=== PATIENT | male | born 1970 | race Two or more races ===

== ENCOUNTER 2020-12-28 12:55 | Inpatient (IN) | payer SELFPAY ==
[~2020-12-28] VITALS: Ht 165.1 cm; Wt 127.0 kg
[2020-12-28] MEDS ORDERED: [UNRECOGNIZED DRUG - CODE] PO (13:17)
[2020-12-28] MEDS ORDERED: TOPR25TA PO (13:17)
[2020-12-28] MEDS ORDERED: LISI2.5T9 PO (13:17)
[2020-12-28 13:51] LABS: BASO % 0.2 % (0.0-1.0); HEMATOCRIT 49.7 % (42.0-52.0); HEMOGLOBIN 15.9 g/dl (13.5-17.5); LYMPH # 0.5 10^3/uL (1.5-5.0); LYMPH % 8.1 % (24.0-44.0); MEAN CORPUSCULAR HEMOGLOBIN 29.3 pg (27.0-33.0); MEAN CORPUSCULAR VOLUME 91.7 fl (80.0-96.0); MONO # 0.8 10^3/uL (0.0-0.8); MONO % 12.1 % (2.0-8.0); NEUTROPHILS # 5.1 10^3/uL (1.5-8.5); NEUTROPHILS % 79.1 % (36.0-66.0); PLATELET COUNT, AUTOMATED 158 10^3/uL (150-450); RED BLOOD COUNT 5.42 10^6/uL (4.30-6.10); WHITE BLOOD COUNT 6.4 10^3/uL (4.0-10.0)
[2020-12-28 14:30] LABS: ALBUMIN 3.6 GM/DL (3.2-5.2); BILIRUBIN,DIRECT 0.2 MG/DL (0.0-0.2); BILIRUBIN,TOTAL 0.6 MG/DL (0.2-1.0); CALCIUM LEVEL 9.3 MG/DL (8.5-10.1); CREATININE FOR GFR 1.66 MG/DL (0.70-1.30); FREE T4 1.04 NG/DL (0.76-1.46); GLOMERULAR FILTRATION RATE 46.5 (>56); POTASSIUM SERUM 3.9 MEQ/L (3.5-5.1); THYROID STIMULATING HORMONE 0.323 uIU/ML (0.358-3.740); TOTAL PROTEIN 7.8 GM/DL (6.4-8.2)
[2020-12-28] MEDS ORDERED: ACETAMINOPHEN 325 MG TAB PO ONE (14:30)
[2020-12-28] MEDS ORDERED: NS 500 ML IV ONE ×4 (14:35→17:25)
[2020-12-28] MEDS ORDERED: ISOVUE-370 76% 100ML VIAL As Ordered ONE (14:43)
[2020-12-28 15:27] LABS: RSV AMPLIFICATION NEGATIVE (NEGATIVE)
[2020-12-28] MEDS ORDERED: MOM 30ML SUSPENSION UDC PO PRN (17:15)
[2020-12-28] MEDS ORDERED: MAALOX 30 ML SUSP *UDC PO PRN (17:15)
[2020-12-28] MEDS ORDERED: ACETAMINOPHEN TAB 650MG DOSE (2X325MG) PO PRN (17:15)
[2020-12-28] MEDS ORDERED: AMLO1TAB24 PO (18:32)
[2020-12-28] MEDS ORDERED: LISI40TA4 PO (18:33)
[2020-12-28] MEDS ORDERED: TRIA37.53 PO (18:34)
[2020-12-28] MEDS ORDERED: METO1TAB33 PO (18:34)
[2020-12-28 18:46] LABS: CK-MB VALUE MASS 2.6 NG/ML (<3.6); MB/CK RELATIVE INDEX 0.55 (< OR =4)
[2020-12-28 19:07] VITALS: BP 120/73
[2020-12-28] MEDS: dexameTHASONE 4 MG/ML 1ML VIAL (J1100 PER 1MG) IV SCH (19:15)
[2020-12-28] MEDS: PIPERACILLIN/TAZOBACTAM SOD 4.5 GM in D5W MINI-BAG PLUS 50 ML IV SCH (19:15)
[2020-12-28 19:30] VITALS: BP_SYST 127; BP_SYST 128; BP_SYST 133; BP_DIAS 74; BP_DIAS 84
[2020-12-28 19:45] LABS: C REACTIVE PROTEIN QUANTITATIV 0.71 MG/DL (0.00-0.30)
[2020-12-28] MEDS ORDERED: LR 1,000 ML IV SCH (19:45)
[2020-12-28 20:00] VITALS: BP 119/72
[2020-12-28 20:12] LABS: ERYTHROCYTE SEDIMENTATION RATE 3 mm/hr (0-20)
[2020-12-28] MEDS: NS 1,000 ML IV SCH (20:18)
[2020-12-28] MEDS ORDERED: REMDESIVIR 200 MG in NS 250 ML IV ONE (21:00)
[2020-12-28] MEDS ORDERED: SODIUM CHLORIDE 0.9% INJ 10 ML SYR IV ONE (21:00)
[2020-12-29] VITALS (7 sets, daily range): BP systolic 104–130; BP diastolic 64–81
[2020-12-29] MEDS: PIPERACILLIN/TAZOBACTAM SOD 4.5 GM in D5W MINI-BAG PLUS 50 ML IV SCH ×3 (01:04→13:20)
[2020-12-29] MEDS: NS 1,000 ML IV SCH ×3 (03:16→15:10)
[2020-12-29 05:43] LABS: HEMATOCRIT 44.9 % (42.0-52.0); HEMOGLOBIN 14.8 g/dl (13.5-17.5); LYMPH # 0.3 10^3/uL (1.5-5.0); LYMPH % 8.3 % (24.0-44.0); MEAN CORPUSCULAR HEMOGLOBIN 29.7 pg (27.0-33.0); MONO # 0.3 10^3/uL (0.0-0.8); MONO % 9.7 % (2.0-8.0); NEUTROPHILS # 2.8 10^3/uL (1.5-8.5); NEUTROPHILS % 81.7 % (36.0-66.0); PLATELET COUNT, AUTOMATED 152 10^3/uL (150-450); RED BLOOD COUNT 4.99 10^6/uL (4.30-6.10); WHITE BLOOD COUNT 3.4 10^3/uL (4.0-10.0)
[2020-12-29 05:57] LABS: INR 1.1; PROTHROMBIN TIME 14.7 SECONDS (12.7-14.5)
[2020-12-29 06:01] LABS: D-DIMER QUANT 937.41 ng/ml (<500)
[2020-12-29 06:10] LABS: ALBUMIN 2.9 GM/DL (3.2-5.2); BILIRUBIN,TOTAL 0.3 MG/DL (0.2-1.0); CALCIUM LEVEL 8.3 MG/DL (8.5-10.1); CREATININE FOR GFR 1.35 MG/DL (0.70-1.30); GLOMERULAR FILTRATION RATE 59.1 (>56); POTASSIUM SERUM 4.4 MEQ/L (3.5-5.1); TOTAL PROTEIN 6.6 GM/DL (6.4-8.2)
[2020-12-29 06:14] LABS: C REACTIVE PROTEIN QUANTITATIV 1.21 MG/DL (0.00-0.30)
[2020-12-29] MEDS ORDERED: ENOXAPARIN 40MG/0.4ML SYRINGE (J1650 PER 10MG) SC SCH (09:00)
[2020-12-29] MEDS: dexameTHASONE 4 MG/ML 1ML VIAL (J1100 PER 1MG) IV SCH (09:02)
[2020-12-29] MEDS ORDERED: PRED10TA2 PO (12:37)
[2020-12-29] MEDS ORDERED: ACET1TAB55 PO (12:37)
[2020-12-29] MEDS ORDERED: REMDESIVIR 100 MG in NS 250 ML IV SCH (21:00)
[2020-12-29] MEDS ORDERED: SODIUM CHLORIDE 0.9% INJ 10 ML SYR IV SCH (21:00)
== END 2020-12-29 15:31 | disposition home or self-care (01) | DRG 137 ==
LOC: M ED 12:55 → EDBD 12:55 → M ED INP 17:12 → M ICU 18:50
PROVIDERS: ADMIT Family Medicine; ATTEND Family Medicine
PROC: XW033E5 Introduction of Remdesivir Anti-infective into Peripheral Vein, Percutaneous Approach, New Technology Group 5 (ICD-10-PCS; principal; 2020-12-28)
PROC: 3E0333Z Introduction of Anti-inflammatory into Peripheral Vein, Percutaneous Approach (ICD-10-PCS; 2020-12-28)
DX: U07.1 COVID-19 (principal); J12.82 Pneumonia due to coronavirus disease 2019; N17.9 Acute kidney failure, unspecified; I95.2 Hypotension due to drugs; Z79.899 Other long term (current) drug therapy

== ENCOUNTER 2021-01-07 11:39 | Inpatient (IN) | payer BC, SELFPAY ==
[~2021-01-07] VITALS: Ht 180.3 cm; Wt 122.9 kg
[2021-01-07] MEDS: ENOXAPARIN 80MG/0.8ML SYRINGE (J1650 PER 10MG) SC SCH (00:45)
[2021-01-07] MEDS: BARICITINIB 2MG TABLET (OLUMIANT) FOR EUA PO SCH (09:00)
[~2021-01-07 11:39] MED LIST: ACET1TAB55 PO; AMLO1TAB24 PO; LISI2.5T9 PO; LISI40TA4 PO; METO1TAB33 PO; PRED10TA2 PO; TOPR25TA PO; TRIA37.53 PO; [UNRECOGNIZED DRUG - CODE] PO
[2021-01-07 13:06] LABS: ABG BASE EXCESS 1.1 (-2.0-2.0); ABG HCO3 24.8 MEQ/L (22.0-26.0); ABG O2 SATURATION 88.3 % (95.0-99.0); ABG PARTIAL PRESSURE CO2 36.6 mmHg (35.0-45.0); ABG PARTIAL PRESSURE O2 52.6 mmHg (75.0-100.0); ABG STANDARD HCO3 25.2 MEQ/L (22.0-26.0); ABG TOTAL CO2 25.9 MEQ/L (22.0-29.0); ABG pH (ARTERIAL) 7.448 UNITS (7.350-7.450)
[2021-01-07 13:35] LABS: BASO % 0.2 % (0.0-1.0); EOS % 0.1 % (0.0-3.0); HEMATOCRIT 44.6 % (42.0-52.0); HEMOGLOBIN 14.4 g/dl (13.5-17.5); LYMPH # 0.4 10^3/uL (1.5-5.0); LYMPH % 2.7 % (24.0-44.0); MEAN CORPUSCULAR HEMOGLOBIN 29.3 pg (27.0-33.0); MEAN CORPUSCULAR HGB CONC 32.3 g/dl (32.0-36.5); MEAN CORPUSCULAR VOLUME 90.8 fl (80.0-96.0); MONO # 0.7 10^3/uL (0.0-0.8); NEUTROPHILS # 14.9 10^3/uL (1.5-8.5); NEUTROPHILS % 91.9 % (36.0-66.0); PLATELET COUNT, AUTOMATED 235 10^3/uL (150-450); RED BLOOD COUNT 4.91 10^6/uL (4.30-6.10); WHITE BLOOD COUNT 16.2 10^3/uL (4.0-10.0)
[2021-01-07 13:45] LABS: INR 1.14
[2021-01-07 13:46] LABS: FIBRINOGEN 781 MG/DL (268-480); PARTIAL THROMBOPLASTIN TIME 23.7 SECONDS (25.9-37.0)
[2021-01-07 14:08] LABS: D-DIMER QUANT > 4000.0 ng/ml (<500)
[2021-01-07 14:09] LABS: ALBUMIN 2.5 GM/DL (3.2-5.2); ALT/SGPT 138 U/L (12-78); BILIRUBIN,DIRECT 0.3 MG/DL (0.0-0.2); BILIRUBIN,TOTAL 0.6 MG/DL (0.2-1.0); BLOOD UREA NITROGEN 24 MG/DL (7-18); CALCIUM LEVEL 8.8 MG/DL (8.5-10.1); CARBON DIOXIDE LEVEL 29 MEQ/L (21-32); CHLORIDE LEVEL 104 MEQ/L (98-107); FERRITIN 1165 NG/ML (26-388); GLOMERULAR FILTRATION RATE > 60.0 (>56); GLUCOSE, FASTING 108 MG/DL (70-100); LDH LACTATE DEHYDROGENASE 447 U/L (87-241); MAGNESIUM LEVEL 2.4 MG/DL (1.8-2.4); NT-PRO BNP 65 PG/ML (<125); POTASSIUM SERUM 4.1 MEQ/L (3.5-5.1); SODIUM LEVEL 140 MEQ/L (136-145); THYROID STIMULATING HORMONE 0.291 uIU/ML (0.358-3.740); THYROXINE (T4) 9.7 UG/DL (4.5-12.0); TOTAL PROTEIN 7.2 GM/DL (6.4-8.2)
[2021-01-07] MEDS ORDERED: cefTRIAXone SOD 2 GM in D5W MINI-BAG PLUS 50 ML IV ONE (14:15)
[2021-01-07] MEDS ORDERED: dexameTHASONE 20MG/5ML VIAL (J1100 PER 1MG) IV ONE (14:15)
[2021-01-07] MEDS ORDERED: AZITHROMYCIN INJ 500 MG, VIAL MATE ADAPTER 1 EACH in NS 250 ML IV ONE (14:15)
[2021-01-07] MEDS ORDERED: ISOVUE-370 76% 100ML VIAL As Ordered ONE (14:26)
[2021-01-07] MEDS ORDERED: ALBUTEROL 90 MCG/ACT 8GM HFA INHALER INH PRN (15:55)
[2021-01-07] MEDS ORDERED: PRED10TA2 PO (16:48)
[2021-01-07] MEDS ORDERED: ACET1TAB55 PO (16:49)
[2021-01-07] MEDS ORDERED: HOME MED LIST COMPLETE! XX SCH (16:50)
[2021-01-07] MEDS ORDERED: NS 1,000 ML IV SCH (17:00)
[2021-01-07] MEDS ORDERED: SODIUM CHLORIDE 0.9% INJ 10 ML SYR IV ONE (20:00)
[2021-01-07] MEDS: REMDESIVIR 200 MG in NS 250 ML IV ONE ×2 (21:02→22:15)
[2021-01-07] MEDS: ACETAMINOPHEN TAB 650MG DOSE (2X325MG) PO PRN (23:34)
[2021-01-08 08:26] LABS: HEMATOCRIT 43.1 % (42.0-52.0); HEMOGLOBIN 14.1 g/dl (13.5-17.5); MEAN CORPUSCULAR HEMOGLOBIN 29.6 pg (27.0-33.0); MEAN CORPUSCULAR HGB CONC 32.7 g/dl (32.0-36.5); MEAN CORPUSCULAR VOLUME 90.4 fl (80.0-96.0); PLATELET COUNT, AUTOMATED 193 10^3/uL (150-450); RED BLOOD COUNT 4.77 10^6/uL (4.30-6.10); WHITE BLOOD COUNT 12.3 10^3/uL (4.0-10.0)
[2021-01-08] MEDS: dexameTHASONE 4 MG/ML 1ML VIAL (J1100 PER 1MG) IV SCH (08:33)
[2021-01-08] MEDS: ENOXAPARIN 80MG/0.8ML SYRINGE (J1650 PER 10MG) SC SCH ×2 (08:34→20:48)
[2021-01-08] MEDS: BARICITINIB 2MG TABLET (OLUMIANT) FOR EUA PO SCH (08:35)
[2021-01-08 08:51] LABS: ALBUMIN 2.1 GM/DL (3.2-5.2); ALT/SGPT 101 U/L (12-78); BILIRUBIN,TOTAL 0.5 MG/DL (0.2-1.0); BLOOD UREA NITROGEN 24 MG/DL (7-18); CALCIUM LEVEL 8.6 MG/DL (8.5-10.1); CARBON DIOXIDE LEVEL 26 MEQ/L (21-32); CHLORIDE LEVEL 109 MEQ/L (98-107); CREATININE FOR GFR 0.78 MG/DL (0.70-1.30); GLOMERULAR FILTRATION RATE > 60.0 (>56); GLUCOSE, FASTING 122 MG/DL (70-100); POTASSIUM SERUM 4.5 MEQ/L (3.5-5.1); SODIUM LEVEL 142 MEQ/L (136-145); TOTAL PROTEIN 7.2 GM/DL (6.4-8.2)
[2021-01-08] MEDS ORDERED: LevoFLOXacin IV 750 MG in IV 1 EA IV SCH (09:00)
[2021-01-08 10:29] LABS: ABG BASE EXCESS 1.3 (-2.0-2.0); ABG HCO3 25.1 MEQ/L (22.0-26.0); ABG O2 SATURATION 93.8 % (95.0-99.0); ABG PARTIAL PRESSURE CO2 37.2 mmHg (35.0-45.0); ABG PARTIAL PRESSURE O2 69.1 mmHg (75.0-100.0); ABG STANDARD HCO3 25.5 MEQ/L (22.0-26.0); ABG TOTAL CO2 26.2 MEQ/L (22.0-29.0); ABG pH (ARTERIAL) 7.447 UNITS (7.350-7.450)
[2021-01-08 16:15] VITALS: BP 135/58
[2021-01-08] MEDS: REMDESIVIR 100 MG in NS 250 ML IV SCH (17:57)
[2021-01-08 19:33] VITALS: BP 143/74
[2021-01-08] MEDS: SODIUM CHLORIDE 0.9% INJ 10 ML SYR IV SCH (19:33)
[2021-01-08 23:35] VITALS: BP 133/63
[2021-01-09 03:35] VITALS: BP 162/83
[2021-01-09] MEDS ORDERED: IPRATROPIUM 0.5MG/ALBUTEROL 2.5MG INH SOL UD 3ML (DUONEB) NEB PRN (04:25)
[2021-01-09 06:15] LABS: HEMATOCRIT 43.6 % (42.0-52.0); HEMOGLOBIN 14.2 g/dl (13.5-17.5); MEAN CORPUSCULAR HEMOGLOBIN 29.3 pg (27.0-33.0); MEAN CORPUSCULAR HGB CONC 32.6 g/dl (32.0-36.5); MEAN CORPUSCULAR VOLUME 90.1 fl (80.0-96.0); PLATELET COUNT, AUTOMATED 211 10^3/uL (150-450); RED BLOOD COUNT 4.84 10^6/uL (4.30-6.10); WHITE BLOOD COUNT 18.3 10^3/uL (4.0-10.0)
[2021-01-09 06:26] LABS: INR 1.26; PARTIAL THROMBOPLASTIN TIME 27.4 SECONDS (25.9-37.0); PROTHROMBIN TIME 16.3 SECONDS (12.7-14.5)
[2021-01-09 06:47] LABS: ALBUMIN 2.1 GM/DL (3.2-5.2); ALT/SGPT 97 U/L (12-78); BILIRUBIN,TOTAL 0.5 MG/DL (0.2-1.0); BLOOD UREA NITROGEN 24 MG/DL (7-18); CALCIUM LEVEL 8.5 MG/DL (8.5-10.1); CARBON DIOXIDE LEVEL 28 MEQ/L (21-32); CHLORIDE LEVEL 110 MEQ/L (98-107); CREATININE FOR GFR 0.85 MG/DL (0.70-1.30); FERRITIN 1116 NG/ML (26-388); GLOMERULAR FILTRATION RATE > 60.0 (>56); GLUCOSE, FASTING 106 MG/DL (70-100); LDH LACTATE DEHYDROGENASE 462 U/L (87-241); NT-PRO BNP 121 PG/ML (<125); POTASSIUM SERUM 4.5 MEQ/L (3.5-5.1); SODIUM LEVEL 144 MEQ/L (136-145); TOTAL PROTEIN 6.5 GM/DL (6.4-8.2)
[2021-01-09 08:00] VITALS: BP 146/65
[2021-01-09] MEDS ORDERED: FUROSEMIDE 20MG/2ML VIAL (J1940) IV ONE (08:00)
[2021-01-09] MEDS: dexameTHASONE 4 MG/ML 1ML VIAL (J1100 PER 1MG) IV SCH (08:49)
[2021-01-09] MEDS: ENOXAPARIN 80MG/0.8ML SYRINGE (J1650 PER 10MG) SC SCH ×2 (08:50→20:10)
[2021-01-09] MEDS: BARICITINIB 2MG TABLET (OLUMIANT) FOR EUA PO SCH (08:52)
[2021-01-09 08:56] VITALS: BP 146/65
[2021-01-09 12:00] VITALS: BP 121/66
[2021-01-09 16:15] VITALS: BP 128/62
[2021-01-09] MEDS: ACETAMINOPHEN TAB 650MG DOSE (2X325MG) PO PRN (16:18)
[2021-01-09] MEDS: REMDESIVIR 100 MG in NS 250 ML IV SCH (17:31)
[2021-01-09] MEDS: SODIUM CHLORIDE 0.9% INJ 10 ML SYR IV SCH (19:08)
[2021-01-09 20:00] VITALS: BP 138/75
[2021-01-10] VITALS: BP 136/71
[2021-01-10 04:00] VITALS: BP 140/68
[2021-01-10 04:43] LABS: HEMOGLOBIN 14.3 g/dl (13.5-17.5); MEAN CORPUSCULAR HEMOGLOBIN 29.7 pg (27.0-33.0); MEAN CORPUSCULAR HGB CONC 33.3 g/dl (32.0-36.5); MEAN CORPUSCULAR VOLUME 89.4 fl (80.0-96.0); PLATELET COUNT, AUTOMATED 190 10^3/uL (150-450); RED BLOOD COUNT 4.81 10^6/uL (4.30-6.10); WHITE BLOOD COUNT 13.8 10^3/uL (4.0-10.0)
[2021-01-10 05:06] LABS: ALBUMIN 2.1 GM/DL (3.2-5.2); ALT/SGPT 92 U/L (12-78); BILIRUBIN,TOTAL 0.7 MG/DL (0.2-1.0); BLOOD UREA NITROGEN 27 MG/DL (7-18); CALCIUM LEVEL 8.3 MG/DL (8.5-10.1); CARBON DIOXIDE LEVEL 28 MEQ/L (21-32); CHLORIDE LEVEL 106 MEQ/L (98-107); CREATININE FOR GFR 0.83 MG/DL (0.70-1.30); GLOMERULAR FILTRATION RATE > 60.0 (>56); GLUCOSE, FASTING 106 MG/DL (70-100); POTASSIUM SERUM 4.4 MEQ/L (3.5-5.1); SODIUM LEVEL 143 MEQ/L (136-145); TOTAL PROTEIN 6.6 GM/DL (6.4-8.2)
[2021-01-10 08:00] VITALS: BP 155/95
[2021-01-10] MEDS: BARICITINIB 2MG TABLET (OLUMIANT) FOR EUA PO SCH (08:27)
[2021-01-10] MEDS: dexameTHASONE 4 MG/ML 1ML VIAL (J1100 PER 1MG) IV SCH (08:27)
[2021-01-10] MEDS: ENOXAPARIN 80MG/0.8ML SYRINGE (J1650 PER 10MG) SC SCH ×2 (08:27→19:37)
[2021-01-10] MEDS: FUROSEMIDE 20MG/2ML VIAL (J1940) IV SCH (08:27)
[2021-01-10 09:02] LABS: ABG BASE EXCESS 3.1 (-2.0-2.0); ABG O2 SATURATION 89.2 % (95.0-99.0); ABG PARTIAL PRESSURE O2 55.9 mmHg (75.0-100.0); ABG TOTAL CO2 28.2 MEQ/L (22.0-29.0); ABG pH (ARTERIAL) 7.458 UNITS (7.350-7.450)
[2021-01-10 12:00] VITALS: BP 126/81
[2021-01-10 13:10] LABS: MYCOPLASMA PNEUMONIAE IgG 415 U/mL (0-99); MYCOPLASMA PNEUMONIAE IgM <770 U/mL (0-769)
[2021-01-10 16:00] VITALS: BP 121/69
[2021-01-10] MEDS: REMDESIVIR 100 MG in NS 250 ML IV SCH (18:01)
[2021-01-10] MEDS: SODIUM CHLORIDE 0.9% INJ 10 ML SYR IV SCH (19:37)
[2021-01-10 20:00] VITALS: BP 129/82
[2021-01-11] VITALS: BP 130/79
[2021-01-11 04:00] VITALS: BP 137/67
[2021-01-11 06:17] LABS: HEMATOCRIT 47.7 % (42.0-52.0); HEMOGLOBIN 15.4 g/dl (13.5-17.5); MEAN CORPUSCULAR HEMOGLOBIN 29.7 pg (27.0-33.0); MEAN CORPUSCULAR HGB CONC 32.3 g/dl (32.0-36.5); MEAN CORPUSCULAR VOLUME 92.1 fl (80.0-96.0); PLATELET COUNT, AUTOMATED 168 10^3/uL (150-450); RED BLOOD COUNT 5.18 10^6/uL (4.30-6.10); WHITE BLOOD COUNT 10.9 10^3/uL (4.0-10.0)
[2021-01-11 06:28] LABS: INR 1.25; PARTIAL THROMBOPLASTIN TIME 27.9 SECONDS (25.9-37.0); PROTHROMBIN TIME 16.1 SECONDS (12.7-14.5)
[2021-01-11 06:42] LABS: ALBUMIN 2.2 GM/DL (3.2-5.2); ALT/SGPT 70 U/L (12-78); BILIRUBIN,TOTAL 0.6 MG/DL (0.2-1.0); BLOOD UREA NITROGEN 27 MG/DL (7-18); CALCIUM LEVEL 8.2 MG/DL (8.5-10.1); CARBON DIOXIDE LEVEL 31 MEQ/L (21-32); CHLORIDE LEVEL 105 MEQ/L (98-107); CREATININE FOR GFR 0.94 MG/DL (0.70-1.30); GLOMERULAR FILTRATION RATE > 60.0 (>56); GLUCOSE, FASTING 103 MG/DL (70-100); SODIUM LEVEL 139 MEQ/L (136-145); TOTAL PROTEIN 6.7 GM/DL (6.4-8.2)
[2021-01-11 06:44] LABS: FERRITIN 768 NG/ML (26-388); LDH LACTATE DEHYDROGENASE 368 U/L (87-241); NT-PRO BNP 84 PG/ML (<125)
[2021-01-11 08:00] VITALS: BP 133/89
[2021-01-11] MEDS: BARICITINIB 2MG TABLET (OLUMIANT) FOR EUA PO SCH (09:17)
[2021-01-11] MEDS: dexameTHASONE 4 MG/ML 1ML VIAL (J1100 PER 1MG) IV SCH (09:18)
[2021-01-11] MEDS: FUROSEMIDE 20MG/2ML VIAL (J1940) IV SCH (09:18)
[2021-01-11] MEDS: ENOXAPARIN 80MG/0.8ML SYRINGE (J1650 PER 10MG) SC SCH ×2 (09:19→20:46)
[2021-01-11 12:00] VITALS: BP 131/78
[2021-01-11 17:00] VITALS: BP 136/81
[2021-01-11] MEDS: REMDESIVIR 100 MG in NS 250 ML IV SCH (17:52)
[2021-01-11] MEDS: SODIUM CHLORIDE 0.9% INJ 10 ML SYR IV SCH (18:56)
[2021-01-11 22:20] VITALS: BP 127/81
[2021-01-12] VITALS: BP 120/72
[2021-01-12 04:00] VITALS: BP 122/68
[2021-01-12 06:34] LABS: HEMATOCRIT 44.8 % (42.0-52.0); HEMOGLOBIN 14.4 g/dl (13.5-17.5); MEAN CORPUSCULAR HEMOGLOBIN 28.8 pg (27.0-33.0); MEAN CORPUSCULAR HGB CONC 32.1 g/dl (32.0-36.5); MEAN CORPUSCULAR VOLUME 89.6 fl (80.0-96.0); PLATELET COUNT, AUTOMATED 185 10^3/uL (150-450); WHITE BLOOD COUNT 9.9 10^3/uL (4.0-10.0)
[2021-01-12 06:48] LABS: ALBUMIN 1.9 GM/DL (3.2-5.2); ALT/SGPT 55 U/L (12-78); BILIRUBIN,TOTAL 0.7 MG/DL (0.2-1.0); BLOOD UREA NITROGEN 22 MG/DL (7-18); CALCIUM LEVEL 8.7 MG/DL (8.5-10.1); CARBON DIOXIDE LEVEL 32 MEQ/L (21-32); CHLORIDE LEVEL 104 MEQ/L (98-107); CREATININE FOR GFR 0.91 MG/DL (0.70-1.30); GLOMERULAR FILTRATION RATE > 60.0 (>56); GLUCOSE, FASTING 100 MG/DL (70-100); POTASSIUM SERUM 4.7 MEQ/L (3.5-5.1); SODIUM LEVEL 140 MEQ/L (136-145); TOTAL PROTEIN 6.8 GM/DL (6.4-8.2)
[2021-01-12 08:00] VITALS: BP 116/80
[2021-01-12] MEDS: FUROSEMIDE 20MG/2ML VIAL (J1940) IV SCH (09:25)
[2021-01-12] MEDS: ENOXAPARIN 80MG/0.8ML SYRINGE (J1650 PER 10MG) SC SCH ×2 (09:25→20:22)
[2021-01-12] MEDS: dexameTHASONE 4 MG/ML 1ML VIAL (J1100 PER 1MG) IV SCH (09:25)
[2021-01-12] MEDS: BARICITINIB 2MG TABLET (OLUMIANT) FOR EUA PO SCH (09:26)
[2021-01-12 12:00] VITALS: BP 111/62
[2021-01-12 16:00] VITALS: BP 127/60
[2021-01-12 16:09] LABS: BODY FLUID CULTURE Not indicated. (.); LEGIONELLA ANTIGEN URINE Negative (Negative); ORGANISM ID Not indicated. (.); SPECIMEN SOURCE Urine (.); URINE STREP PNEUMONIAE ANTIGEN Negative (Negative)
[2021-01-12 20:00] VITALS: BP 123/66
[2021-01-13] VITALS: BP 126/78
[2021-01-13 04:00] VITALS: BP 122/78
[2021-01-13 06:36] LABS: HEMATOCRIT 43.4 % (42.0-52.0); HEMOGLOBIN 14.4 g/dl (13.5-17.5); MEAN CORPUSCULAR HEMOGLOBIN 29.3 pg (27.0-33.0); MEAN CORPUSCULAR HGB CONC 33.2 g/dl (32.0-36.5); MEAN CORPUSCULAR VOLUME 88.2 fl (80.0-96.0); PLATELET COUNT, AUTOMATED 193 10^3/uL (150-450); RED BLOOD COUNT 4.92 10^6/uL (4.30-6.10); WHITE BLOOD COUNT 8.8 10^3/uL (4.0-10.0)
[2021-01-13 06:48] LABS: INR 1.23; PROTHROMBIN TIME 15.9 SECONDS (12.7-14.5)
[2021-01-13 06:49] LABS: PARTIAL THROMBOPLASTIN TIME 29.9 SECONDS (25.9-37.0)
[2021-01-13 07:03] LABS: ALBUMIN 1.9 GM/DL (3.2-5.2); ALT/SGPT 49 U/L (12-78); BILIRUBIN,TOTAL 0.4 MG/DL (0.2-1.0); BLOOD UREA NITROGEN 24 MG/DL (7-18); CALCIUM LEVEL 8.4 MG/DL (8.5-10.1); CARBON DIOXIDE LEVEL 29 MEQ/L (21-32); CHLORIDE LEVEL 103 MEQ/L (98-107); CREATININE FOR GFR 0.86 MG/DL (0.70-1.30); FERRITIN 604 NG/ML (26-388); GLOMERULAR FILTRATION RATE > 60.0 (>56); GLUCOSE, FASTING 150 MG/DL (70-100); LDH LACTATE DEHYDROGENASE 197 U/L (87-241); NT-PRO BNP 35 PG/ML (<125); POTASSIUM SERUM 3.9 MEQ/L (3.5-5.1); SODIUM LEVEL 137 MEQ/L (136-145); TOTAL PROTEIN 6.5 GM/DL (6.4-8.2)
[2021-01-13 08:30] VITALS: BP 108/58
[2021-01-13] MEDS: FUROSEMIDE 20MG/2ML VIAL (J1940) IV SCH (09:21)
[2021-01-13] MEDS: BARICITINIB 2MG TABLET (OLUMIANT) FOR EUA PO SCH (09:21)
[2021-01-13] MEDS: dexameTHASONE 4 MG/ML 1ML VIAL (J1100 PER 1MG) IV SCH (09:21)
[2021-01-13] MEDS: ENOXAPARIN 80MG/0.8ML SYRINGE (J1650 PER 10MG) SC SCH ×2 (09:22→20:17)
[2021-01-13 12:00] VITALS: BP 99/61
[2021-01-13 20:00] VITALS: BP 116/73
[2021-01-14] VITALS: BP 115/72
[2021-01-14 04:00] VITALS: BP 113/63
[2021-01-14 08:00] VITALS: BP 124/87
[2021-01-14] MEDS: BARICITINIB 2MG TABLET (OLUMIANT) FOR EUA PO SCH (09:29)
[2021-01-14] MEDS: ENOXAPARIN 80MG/0.8ML SYRINGE (J1650 PER 10MG) SC SCH ×2 (09:29→20:22)
[2021-01-14] MEDS: dexameTHASONE 4 MG/ML 1ML VIAL (J1100 PER 1MG) IV SCH (09:29)
[2021-01-14 09:30] VITALS: BP 114/66
[2021-01-14 12:51] VITALS: BP 109/79
[2021-01-14 22:00] VITALS: BP 127/79
[2021-01-15 06:00] VITALS: BP 121/74
[2021-01-15 08:03] LABS: HEMATOCRIT 44.8 % (42.0-52.0); HEMOGLOBIN 14.6 g/dl (13.5-17.5); MEAN CORPUSCULAR HEMOGLOBIN 29.1 pg (27.0-33.0); MEAN CORPUSCULAR HGB CONC 32.6 g/dl (32.0-36.5); MEAN CORPUSCULAR VOLUME 89.2 fl (80.0-96.0); PLATELET COUNT, AUTOMATED 241 10^3/uL (150-450); RED BLOOD COUNT 5.02 10^6/uL (4.30-6.10); WHITE BLOOD COUNT 7.6 10^3/uL (4.0-10.0)
[2021-01-15 08:16] LABS: BLOOD UREA NITROGEN 22 MG/DL (7-18); CALCIUM LEVEL 8.9 MG/DL (8.5-10.1); CARBON DIOXIDE LEVEL 32 MEQ/L (21-32); CHLORIDE LEVEL 105 MEQ/L (98-107); CREATININE FOR GFR 0.92 MG/DL (0.70-1.30); GLOMERULAR FILTRATION RATE > 60.0 (>56); GLUCOSE, FASTING 149 MG/DL (70-100); MAGNESIUM LEVEL 2.5 MG/DL (1.8-2.4); SODIUM LEVEL 141 MEQ/L (136-145)
[2021-01-15] MEDS: BARICITINIB 2MG TABLET (OLUMIANT) FOR EUA PO SCH (08:27)
[2021-01-15] MEDS: dexameTHASONE 4 MG/ML 1ML VIAL (J1100 PER 1MG) IV SCH (08:54)
[2021-01-15] MEDS: ENOXAPARIN 80MG/0.8ML SYRINGE (J1650 PER 10MG) SC SCH (08:54)
[2021-01-15 14:00] VITALS: BP 123/74
[2021-01-15 20:00] VITALS: BP 131/84
[2021-01-16 04:00] VITALS: BP 137/86
[2021-01-16] MEDS: BARICITINIB 2MG TABLET (OLUMIANT) FOR EUA PO SCH (08:45)
[2021-01-16] MEDS: ENOXAPARIN 40MG/0.4ML SYRINGE (J1650 PER 10MG) SC SCH (08:46)
[2021-01-16] MEDS: dexameTHASONE 4 MG/ML 1ML VIAL (J1100 PER 1MG) IV SCH (08:46)
[2021-01-16 14:00] VITALS: BP 116/66
[2021-01-16 20:00] VITALS: BP 108/60
[2021-01-17 04:00] VITALS: BP 139/79
[2021-01-17 06:50] LABS: HEMATOCRIT 43.9 % (42.0-52.0); HEMOGLOBIN 14.4 g/dl (13.5-17.5); MEAN CORPUSCULAR HEMOGLOBIN 29.1 pg (27.0-33.0); MEAN CORPUSCULAR HGB CONC 32.8 g/dl (32.0-36.5); MEAN CORPUSCULAR VOLUME 88.9 fl (80.0-96.0); PLATELET COUNT, AUTOMATED 250 10^3/uL (150-450); RED BLOOD COUNT 4.94 10^6/uL (4.30-6.10); WHITE BLOOD COUNT 8.1 10^3/uL (4.0-10.0)
[2021-01-17 07:13] LABS: BLOOD UREA NITROGEN 22 MG/DL (7-18); CALCIUM LEVEL 8.6 MG/DL (8.5-10.1); CARBON DIOXIDE LEVEL 30 MEQ/L (21-32); CHLORIDE LEVEL 106 MEQ/L (98-107); GLOMERULAR FILTRATION RATE > 60.0 (>56); GLUCOSE, FASTING 93 MG/DL (70-100); MAGNESIUM LEVEL 2.5 MG/DL (1.8-2.4); POTASSIUM SERUM 4.3 MEQ/L (3.5-5.1); SODIUM LEVEL 140 MEQ/L (136-145)
[2021-01-17] MEDS: dexameTHASONE 4 MG/ML 1ML VIAL (J1100 PER 1MG) IV SCH (09:03)
[2021-01-17] MEDS: BARICITINIB 2MG TABLET (OLUMIANT) FOR EUA PO SCH (09:04)
[2021-01-17] MEDS: ENOXAPARIN 40MG/0.4ML SYRINGE (J1650 PER 10MG) SC SCH (09:04)
[2021-01-17 14:00] VITALS: BP 103/61
[2021-01-17 20:00] VITALS: BP 111/72
[2021-01-18 04:00] VITALS: BP 120/78
[2021-01-18 06:17] LABS: HEMATOCRIT 43.8 % (42.0-52.0); HEMOGLOBIN 14.4 g/dl (13.5-17.5); MEAN CORPUSCULAR HEMOGLOBIN 29.3 pg (27.0-33.0); MEAN CORPUSCULAR HGB CONC 32.9 g/dl (32.0-36.5); PLATELET COUNT, AUTOMATED 249 10^3/uL (150-450); RED BLOOD COUNT 4.92 10^6/uL (4.30-6.10); WHITE BLOOD COUNT 8.4 10^3/uL (4.0-10.0)
[2021-01-18 06:36] LABS: BLOOD UREA NITROGEN 20 MG/DL (7-18); CALCIUM LEVEL 8.5 MG/DL (8.5-10.1); CARBON DIOXIDE LEVEL 29 MEQ/L (21-32); CHLORIDE LEVEL 106 MEQ/L (98-107); CREATININE FOR GFR 0.86 MG/DL (0.70-1.30); GLOMERULAR FILTRATION RATE > 60.0 (>56); GLUCOSE, FASTING 93 MG/DL (70-100); MAGNESIUM LEVEL 2.4 MG/DL (1.8-2.4); POTASSIUM SERUM 4.3 MEQ/L (3.5-5.1); SODIUM LEVEL 141 MEQ/L (136-145)
[2021-01-18] MEDS: ENOXAPARIN 40MG/0.4ML SYRINGE (J1650 PER 10MG) SC SCH (07:50)
[2021-01-18] MEDS: BARICITINIB 2MG TABLET (OLUMIANT) FOR EUA PO SCH (07:51)
[2021-01-18 07:55] VITALS: BP 118/60
[2021-01-18] MEDS: predniSONE 10 MG TAB PO SCH (13:00)
[2021-01-18 14:00] VITALS: BP 105/59
[2021-01-18 20:00] VITALS: BP 118/75
[2021-01-19 06:17] LABS: HEMATOCRIT 42.3 % (42.0-52.0); HEMOGLOBIN 13.8 g/dl (13.5-17.5); MEAN CORPUSCULAR HEMOGLOBIN 29.1 pg (27.0-33.0); MEAN CORPUSCULAR HGB CONC 32.6 g/dl (32.0-36.5); MEAN CORPUSCULAR VOLUME 89.1 fl (80.0-96.0); PLATELET COUNT, AUTOMATED 241 10^3/uL (150-450); RED BLOOD COUNT 4.75 10^6/uL (4.30-6.10); WHITE BLOOD COUNT 7.9 10^3/uL (4.0-10.0)
[2021-01-19 06:37] LABS: BLOOD UREA NITROGEN 19 MG/DL (7-18); CALCIUM LEVEL 8.1 MG/DL (8.5-10.1); CARBON DIOXIDE LEVEL 29 MEQ/L (21-32); CHLORIDE LEVEL 105 MEQ/L (98-107); CREATININE FOR GFR 1.01 MG/DL (0.70-1.30); GLOMERULAR FILTRATION RATE > 60.0 (>56); GLUCOSE, FASTING 145 MG/DL (70-100); MAGNESIUM LEVEL 2.3 MG/DL (1.8-2.4); POTASSIUM SERUM 3.6 MEQ/L (3.5-5.1); SODIUM LEVEL 140 MEQ/L (136-145)
[2021-01-19] MEDS: ENOXAPARIN 40MG/0.4ML SYRINGE (J1650 PER 10MG) SC SCH (08:14)
[2021-01-19] MEDS: BARICITINIB 2MG TABLET (OLUMIANT) FOR EUA PO SCH (08:14)
[2021-01-19] MEDS: predniSONE 10 MG TAB PO SCH (08:14)
[2021-01-19] MEDS ORDERED: predniSONE 20 MG TAB PO SCH (09:00)
[2021-01-19] MEDS ORDERED: FUROSEMIDE 40MG/4ML VIAL (J1940) IV ONE (12:35)
[2021-01-19 14:00] VITALS: BP 123/80
[2021-01-19 19:53] VITALS: BP 121/69
[2021-01-20 05:37] VITALS: BP 115/72
[2021-01-20 06:18] LABS: HEMATOCRIT 44.9 % (42.0-52.0); HEMOGLOBIN 14.5 g/dl (13.5-17.5); MEAN CORPUSCULAR HEMOGLOBIN 29.3 pg (27.0-33.0); MEAN CORPUSCULAR HGB CONC 32.3 g/dl (32.0-36.5); MEAN CORPUSCULAR VOLUME 90.7 fl (80.0-96.0); PLATELET COUNT, AUTOMATED 239 10^3/uL (150-450); RED BLOOD COUNT 4.95 10^6/uL (4.30-6.10); WHITE BLOOD COUNT 9.9 10^3/uL (4.0-10.0)
[2021-01-20 06:44] LABS: BLOOD UREA NITROGEN 23 MG/DL (7-18); CALCIUM LEVEL 8.6 MG/DL (8.5-10.1); CARBON DIOXIDE LEVEL 32 MEQ/L (21-32); CHLORIDE LEVEL 104 MEQ/L (98-107); CREATININE FOR GFR 1.03 MG/DL (0.70-1.30); GLOMERULAR FILTRATION RATE > 60.0 (>56); GLUCOSE, FASTING 91 MG/DL (70-100); MAGNESIUM LEVEL 2.4 MG/DL (1.8-2.4); POTASSIUM SERUM 3.5 MEQ/L (3.5-5.1); SODIUM LEVEL 142 MEQ/L (136-145)
[2021-01-20] MEDS: predniSONE 10 MG TAB PO SCH (08:23)
[2021-01-20] MEDS: BARICITINIB 2MG TABLET (OLUMIANT) FOR EUA PO SCH (08:23)
[2021-01-20] MEDS: ENOXAPARIN 40MG/0.4ML SYRINGE (J1650 PER 10MG) SC SCH (08:24)
[2021-01-20 14:00] VITALS: BP 116/75
[2021-01-20 20:00] VITALS: BP 126/71
[2021-01-21 04:00] VITALS: BP 128/85
[2021-01-21 06:52] LABS: HEMATOCRIT 43.9 % (42.0-52.0); HEMOGLOBIN 14.3 g/dl (13.5-17.5); MEAN CORPUSCULAR HEMOGLOBIN 29.5 pg (27.0-33.0); MEAN CORPUSCULAR HGB CONC 32.6 g/dl (32.0-36.5); MEAN CORPUSCULAR VOLUME 90.5 fl (80.0-96.0); PLATELET COUNT, AUTOMATED 193 10^3/uL (150-450); RED BLOOD COUNT 4.85 10^6/uL (4.30-6.10); WHITE BLOOD COUNT 8.6 10^3/uL (4.0-10.0)
[2021-01-21 07:11] LABS: BLOOD UREA NITROGEN 17 MG/DL (7-18); CALCIUM LEVEL 8.9 MG/DL (8.5-10.1); CARBON DIOXIDE LEVEL 32 MEQ/L (21-32); CHLORIDE LEVEL 105 MEQ/L (98-107); CREATININE FOR GFR 0.84 MG/DL (0.70-1.30); GLOMERULAR FILTRATION RATE > 60.0 (>56); GLUCOSE, FASTING 82 MG/DL (70-100); MAGNESIUM LEVEL 2.3 MG/DL (1.8-2.4); POTASSIUM SERUM 3.8 MEQ/L (3.5-5.1); SODIUM LEVEL 140 MEQ/L (136-145)
[2021-01-21] MEDS: predniSONE 10 MG TAB PO SCH (09:15)
[2021-01-21] MEDS: ENOXAPARIN 40MG/0.4ML SYRINGE (J1650 PER 10MG) SC SCH (09:15)
[2021-01-21 14:00] VITALS: BP 159/81
[2021-01-21 20:00] VITALS: BP 153/81
[2021-01-22 04:00] VITALS: BP 151/92
[2021-01-22 07:45] LABS: HEMATOCRIT 44.3 % (42.0-52.0); HEMOGLOBIN 14.6 g/dl (13.5-17.5); MEAN CORPUSCULAR HEMOGLOBIN 29.7 pg (27.0-33.0); PLATELET COUNT, AUTOMATED 180 10^3/uL (150-450); RED BLOOD COUNT 4.92 10^6/uL (4.30-6.10); WHITE BLOOD COUNT 8.4 10^3/uL (4.0-10.0)
[2021-01-22 08:15] LABS: BLOOD UREA NITROGEN 16 MG/DL (7-18); CALCIUM LEVEL 8.7 MG/DL (8.5-10.1); CARBON DIOXIDE LEVEL 32 MEQ/L (21-32); CHLORIDE LEVEL 104 MEQ/L (98-107); GLOMERULAR FILTRATION RATE > 60.0 (>56); GLUCOSE, FASTING 86 MG/DL (70-100); MAGNESIUM LEVEL 2.3 MG/DL (1.8-2.4); SODIUM LEVEL 141 MEQ/L (136-145)
[2021-01-22] MEDS ORDERED: PANT40TA29 PO (08:23)
[2021-01-22] MEDS ORDERED: PRED10TA2 PO (08:23)
[2021-01-22] MEDS: predniSONE 10 MG TAB PO SCH (09:29)
[2021-01-22] MEDS: ENOXAPARIN 40MG/0.4ML SYRINGE (J1650 PER 10MG) SC SCH (09:29)
== END 2021-01-22 14:20 | disposition home or self-care (01) | DRG 720 ==
LOC: M ED 11:39 → M ED INP 15:39 → ENRESERV 01-08 15:07 → M ICU 01-08 16:15 → M 4MAIN 01-11 22:10
PROVIDERS: ADMIT Internal Medicine; ATTEND Internal Medicine Nephrology
PROC: XW033E5 Introduction of Remdesivir Anti-infective into Peripheral Vein, Percutaneous Approach, New Technology Group 5 (ICD-10-PCS; principal; 2021-01-07)
PROC: 3E0333Z Introduction of Anti-inflammatory into Peripheral Vein, Percutaneous Approach (ICD-10-PCS; 2021-01-07)
DX: A41.9 Sepsis, unspecified organism (principal); J96.01 Acute respiratory failure with hypoxia; U07.1 COVID-19; J12.82 Pneumonia due to coronavirus disease 2019; E66.9 Obesity, unspecified; R74.01 Elevation of levels of liver transaminase levels; I10 Essential (primary) hypertension; E86.0 Dehydration; Z68.37 Body mass index [BMI] 37.0-37.9, adult

== ENCOUNTER → 2021-04-08 | Outpatient (CLI) | payer BC ==
[~2021-04-08] MED LIST changes: +PANT40TA29 PO
[2021-04-08 08:24] LABS: ALBUMIN 4.2 GM/DL (3.2-5.2); ALT/SGPT 36 U/L (12-78); BILIRUBIN,TOTAL 1.2 MG/DL (0.2-1.0); BLOOD UREA NITROGEN 14 MG/DL (7-18); CALCIUM LEVEL 9.7 MG/DL (8.5-10.1); CARBON DIOXIDE LEVEL 32 MEQ/L (21-32); CHLORIDE LEVEL 105 MEQ/L (98-107); CHOLESTEROL LEVEL 194 MG/DL (<200); CHOLESTEROL RISK RATIO 4.127 (<5); CREATININE FOR GFR 0.95 MG/DL (0.70-1.30); GLOMERULAR FILTRATION RATE > 60.0 (>56); GLUCOSE, FASTING 117 MG/DL (70-100); HDL CHOLESTEROL 47 MG/DL (>40); LDL CHOLESTEROL 130 MG/DL (<100); NON-HDL-C 147 MG/DL; POTASSIUM SERUM 3.9 MEQ/L (3.5-5.1); SODIUM LEVEL 143 MEQ/L (136-145); TOTAL PROTEIN 7.8 GM/DL (6.4-8.2); TRIGLYCERIDES LEVEL 86 MG/DL (<150)
[2021-04-08 09:50] LABS: HEMOGLOBIN A1c 5.8 %
== END ==
LOC: M LAB 06:45
PROVIDERS: ATTEND Student in an Organized Health Care Education/Training Program
DX: Z13.1 Encounter for screening for diabetes mellitus (principal); I10 Essential (primary) hypertension

== ENCOUNTER 2022-10-24 05:36 | Emergency (ER) | payer BC ==
[~2022-10-24] VITALS: Ht 177.8 cm; Wt 127.3 kg
[~2022-10-24 05:36] MED LIST changes: -TRIA37.53 PO; +TRIA37.577 PO
[2022-10-24] MEDS ORDERED: INDOMETHACIN 25 MG CAP PO ONE (07:55)
[2022-10-24] MEDS ORDERED: predniSONE 20 MG TAB PO ONE (07:55)
[2022-10-24 08:10] LABS: BASO % 0.3 % (0.0-1.0); EOS % 0.4 % (0.0-3.0); HEMATOCRIT 54.6 % (42.0-52.0); HEMOGLOBIN 18.5 g/dl (13.5-17.5); LYMPH # 1.2 10^3/uL (1.5-5.0); MEAN CORPUSCULAR HGB CONC 33.9 g/dl (32.0-36.5); MEAN CORPUSCULAR VOLUME 88.5 fl (80.0-96.0); MONO # 0.9 10^3/uL (0.0-0.8); MONO % 9.5 % (2.0-8.0); NEUTROPHILS # 7.1 10^3/uL (1.5-8.5); NEUTROPHILS % 76.6 % (36.0-66.0); PLATELET COUNT, AUTOMATED 175 10^3/uL (150-450); RED BLOOD COUNT 6.17 10^6/uL (4.30-6.10); WHITE BLOOD COUNT 9.3 10^3/uL (4.0-10.0)
[2022-10-24 08:17] LABS: ERYTHROCYTE SEDIMENTATION RATE 14 mm/hr (0-20)
[2022-10-24 08:40] LABS: BLOOD UREA NITROGEN 18 MG/DL (9-23); CALCIUM LEVEL 9.6 MG/DL (8.5-10.1); CARBON DIOXIDE LEVEL 30 MMOL/L (20-31); CHLORIDE LEVEL 104 MMOL/L (98-107); CREATININE FOR GFR 1.08 MG/DL (0.70-1.30); GLOMERULAR FILTRATION RATE > 60.0 (>56); GLUCOSE, FASTING 129 MG/DL (60-100); POTASSIUM SERUM 4.3 MMOL/L (3.5-5.1); SODIUM LEVEL 140 MMOL/L (136-145)
[2022-10-24 08:43] LABS: URIC ACID 8.8 MG/DL (3.7-9.2)
[2022-10-24] MEDS ORDERED: PRED20TA PO (09:08)
[2022-10-24] MEDS ORDERED: INDO50CA91 PO (09:08)
[2022-10-24 09:19] VITALS: BP 148/86; TEMP 98.1; O2SAT 99
== END 2022-10-24 09:24 | disposition home or self-care (01) ==
LOC: M ED 05:36
DX: M10.9 Gout, unspecified (principal)
CPT/HCPCS: 73630; 80048; 84550; 85025; 85652; 86140; 99284; J7512

== ENCOUNTER → 2023-06-19 | Outpatient (CLI) | payer BC ==
[~2023-06-19] MED LIST changes: +INDO50CA91 PO; +PRED20TA PO
== END ==
LOC: M RAD 14:40
PROVIDERS: ATTEND Internal Medicine
DX: K40.90 Unilateral inguinal hernia, without obstruction or gangrene, not specified as recurrent (principal)

== ENCOUNTER 2024-03-24 17:15 | Emergency (ER) | payer BC ==
[~2024-03-24] VITALS: Ht 180.3 cm; Wt 136.6 kg
[2024-03-25 01:25] VITALS: BP 150/92; TEMP 97.7; O2SAT 96
== END 2024-03-25 01:27 | disposition home or self-care (01) ==
LOC: M ED 17:15
DX: K59.00 Constipation, unspecified (principal)

== ENCOUNTER 2024-05-02 06:21 | Day surgery (SDC) | payer BC ==
[~2024-05-02] VITALS: Ht 172.7 cm; Wt 134.7 kg
[2024-05-02] MEDS: CelecoXIB 400 MG CAP PO ONE (06:52)
[2024-05-02] MEDS ORDERED: LIDOCAINE 2% INJ 100 MG/5 ML SYRINGE As Ordered ONE (06:58)
[2024-05-02] MEDS ORDERED: ROCURONIUM BROMIDE 50MG/5ML VIAL As Ordered ONE (06:58)
[2024-05-02] MEDS ORDERED: propofoL 200 MG/20 ML VIAL As Ordered ONE (06:58)
[2024-05-02] MEDS ORDERED: MIDAZOLAM INJ 2MG/2ML VIAL As Ordered ONE (06:59)
[2024-05-02] MEDS ORDERED: fentaNYL 100 MCG/2 ML INJECTION As Ordered ONE (06:59)
[2024-05-02] MEDS: LR 1,000 ML IV SCH (07:14)
[2024-05-02] MEDS: ceFAZolin SOD 3 GM in DEXTROSE 5% (D5W) MINI-BAG PLU 1... IV ONE (07:37)
[2024-05-02] MEDS ORDERED: PHENYLEPHRINE 10MG/ML 1ML VIAL As Ordered ONE (08:01)
[2024-05-02] MEDS ORDERED: ePHEDrine SULFATE 25 MG/5 ML(5MG/ML) SYRINGE As Ordered ONE (08:01)
[2024-05-02] MEDS ORDERED: ONDANSETRON 4MG 2ML VIAL As Ordered ONE (08:24)
[2024-05-02] MEDS ORDERED: SUGAMMADEX SODIUM 500 MG/5 ML VIAL (BRIDION) As Ordered ONE (08:36)
[2024-05-02] MEDS ORDERED: KETOROLAC 30 MG/ML 1ML VIAL As Ordered ONE (09:20)
[2024-05-02] MEDS: LIDOCAINE 1% SDV 30ML VIAL As Ordered ONE (09:30)
[2024-05-02] MEDS ORDERED: HYDROMORPHONE HCL 0.5 MG/ 0.5 ML SYRINGE IV PRN (09:40)
[2024-05-02] MEDS ORDERED: oxyCODONE 5MG TAB PO PRN (09:40)
[2024-05-02] MEDS ORDERED: ONDANSETRON 4MG 2ML VIAL IV PRN (09:40)
[2024-05-02] MEDS ORDERED: fentaNYL 100 MCG/2 ML INJECTION IV PRN (09:40)
[2024-05-02] MEDS ORDERED: LR 1,000 ML IV SCH (09:40)
[2024-05-02 12:45] VITALS: BP 158/89; TEMP 96.2; O2SAT 92
== END 2024-05-02 13:15 | disposition home or self-care (01) ==
LOC: M SDC 06:21
PROVIDERS: ATTEND Surgery
DX: K40.90 Unilateral inguinal hernia, without obstruction or gangrene, not specified as recurrent (principal); D17.6 Benign lipomatous neoplasm of spermatic cord; E66.01 Morbid (severe) obesity due to excess calories; Z68.42 Body mass index [BMI] 45.0-49.9, adult; G47.9 Sleep disorder, unspecified; R06.83 Snoring
CPT/HCPCS: 49650; 93005; C1781; J0665; J0690; J1100; J1885; J2250; J2371; J2405; J3010; S2900

== ENCOUNTER 2024-06-01 04:01 | Emergency (ER) | payer BC ==
[~2024-06-01] VITALS: Ht 180.3 cm; Wt 139.9 kg
[~2024-06-01 04:01] MED LIST changes: +[UNRECOGNIZED DRUG - CODE] PO; -[UNRECOGNIZED DRUG - CODE] PO
[2024-06-01 04:32] LABS: KETONE, URINE AUTO RFX NEGATIVE (NEGATIVE); LEUKOCYTE ESTERASE UR AUTO RFX NEGATIVE (NEGATIVE); MUCUS, URINE RFX SMALL (NEGATIVE); NITRITE, URINE AUTO RFX NEGATIVE (NEGATIVE); RBC, URINE AUTO RFX 5 /HPF (0-3); SQUAM EPITHELIAL CELL UR AURFX 0 /HPF (0-6); WBC, URINE AUTO RFX 1 /HPF (0-3)
[2024-06-01 06:34] LABS: Trichomonas vaginalis (AMP) NOT DETECTED (NEGATIVE)
[2024-06-01] MEDS: KETOROLAC 60MG 2ML VIAL IM ONE (06:42)
[2024-06-01 06:59] LABS: GC DNA AMPLIFICATION NEGATIVE (NEGATIVE)
[2024-06-01 07:32] VITALS: TEMP 97.4
[2024-06-01 08:30] VITALS: BP 178/97; O2SAT 93
[2024-06-01] MEDS ORDERED: LEVO1TAB39 PO (08:33)
[2024-06-01] MEDS: LIDOCAINE 1% SDV 5ML VIAL DILUENT ONE (08:35)
[2024-06-01] MEDS: cefTRIAXone 500MG VIAL IM ONE (08:35)
[2024-06-01] MEDS: LevoFLOXacin 500 MG TABLET PO ONE (08:35)
== END 2024-06-01 09:07 | disposition home or self-care (01) ==
LOC: M ED 04:01
DX: N45.1 Epididymitis (principal); R03.0 Elevated blood-pressure reading, without diagnosis of hypertension; R31.9 Hematuria, unspecified; Z79.899 Other long term (current) drug therapy
CPT/HCPCS: 76870; 81001; 87661; 87810; 87850; 93976; 96372; 99284; J0696; J1885

== ENCOUNTER 2024-12-16 04:40 | Observation (INO) | payer BC ==
[~2024-12-16] VITALS: Ht 180.3 cm; Wt 135.4 kg
[~2024-12-16 04:40] MED LIST changes: +CYCL-707 PO; +IBUP200T46 PO; +LEVO1TAB39 PO; +LISI40TA10 PO; -LISI40TA4 PO; +MEDR4PAK PO
[2024-12-16 11:17] VITALS: O2SAT 99
[2024-12-16 13:02] LABS: BASO # 0.0 10^3/uL (0.0-0.2); BASO % 0.5 % (0.0-1.0); EOS # 0.1 10^3/uL (0.0-0.5); EOS % 2.2 % (0.0-3.0); LYMPH # 1.1 10^3/uL (1.5-5.0); LYMPH % 17.0 % (24.0-44.0); MONO # 0.8 10^3/uL (0.0-0.8); MONO % 12.9 % (2.0-8.0); NEUTROPHILS # 4.2 10^3/uL (1.5-8.5); NEUTROPHILS % 67.1 % (36.0-66.0); PLATELET COUNT, AUTOMATED 155 10^3/uL (150-450); VENOUS BASE EXCESS 1.4 (-2.0-2.0); VENOUS HCO3 29.1 MMOL/L (23.0-27.0); VENOUS O2 SATURATION 72.8 % (60.0-80.0); VENOUS PARTIAL PRESSURE CO2 56.7 mmHg (38.0-50.0); VENOUS PARTIAL PRESSURE O2 39.6 mmHg (30.0-50.0); VENOUS PH 7.328 UNITS (7.330-7.430); VENOUS STANDARD HCO3 24.9 MMOL/L; VENOUS TOTAL CO2 30.8 MMOL/L (24.0-28.0)
[2024-12-16] MEDS ORDERED: ISOVUE-370 76% 100 ML VIAL As Ordered ONE (13:10)
[2024-12-16] MEDS: IPRATROPIUM 0.5 MG/ALBUTEROL 2.5 MG INH SOL UD 3 ML NEB PRN (13:19)
[2024-12-16 13:35] LABS: CK-MB VALUE MASS 9.7 NG/ML (<3.6)
[2024-12-16 13:38] LABS: THYROXINE (T4) 8.1 UG/DL (4.5-10.9)
[2024-12-16 13:39] LABS: ALT/SGPT 35 U/L (7.0-40); AST/SGOT 37 U/L (<34); CALCIUM LEVEL 9.2 MG/DL (8.5-10.1); CARBON DIOXIDE LEVEL 29 MMOL/L (20-31); CHLORIDE LEVEL 104 MMOL/L (98-107); CREATININE FOR GFR 0.87 MG/DL (0.70-1.30); GLOMERULAR FILTRATION RATE > 90.0 (>56); POTASSIUM SERUM 4.3 MMOL/L (3.5-5.1); SODIUM LEVEL 143 MMOL/L (136-145)
[2024-12-16 13:41] LABS: CPK CREATINE PHOSPHOKINASE 401 U/L (46-171); MB/CK RELATIVE INDEX 2.41 (< OR =4)
[2024-12-16 13:44] LABS: INR 0.95
[2024-12-16 14:51] LABS: CK-MB VALUE MASS 8.0 NG/ML (<3.6)
[2024-12-16 14:55] LABS: CPK CREATINE PHOSPHOKINASE 350.0 U/L (46-171); MB/CK RELATIVE INDEX 2.28 (< OR =4)
[2024-12-16 15:45] LABS: CK-MB VALUE MASS 5.9 NG/ML (<3.6)
[2024-12-16 15:46] LABS: CPK CREATINE PHOSPHOKINASE 260 U/L (46-171); MB/CK RELATIVE INDEX 2.26 (< OR =4)
[2024-12-16] MEDS ORDERED: IPRATROPIUM 0.5 MG/ALBUTEROL 2.5 MG INH SOL UD 3 ML NEB PRN (16:00)
[2024-12-16] MEDS: IPRATROPIUM 0.5 MG/ALBUTEROL 2.5 MG INH SOL UD 3 ML NEB SCH (16:13)
[2024-12-16 16:27] LABS: C REACTIVE PROTEIN QUANTITATIV < 0.50 MG/DL (<1.0)
[2024-12-16 16:58] LABS: ESTIMATED AVERAGE GLUCOSE 128.0 MG/DL (60-110)
[2024-12-16 17:00] VITALS: BP 197/91; TEMP 98.6; O2SAT 93
[2024-12-16] MEDS ORDERED: HOME MED LIST COMPLETE! XX SCH ×2 (17:10)
[2024-12-16] MEDS: cefTRIAXone SOD 2 GM in DEXTROSE 5% (D5W) ADV/MINI-BAG 50 ML IV ONE (17:44)
[2024-12-16] MEDS: METOPROLOL TART 25 MG TABLET PO SCH (17:44)
[2024-12-16 20:35] VITALS: BP 135/70; TEMP 97.9; O2SAT 94
[2024-12-16] MEDS: guaiFENesin ER TABLET 600 MG TAB PO SCH (20:48)
[2024-12-16] MEDS: DOXYCYCLINE HYCLATE 100 MG TABLET PO SCH (20:48)
[2024-12-16] MEDS: HEPARIN SOD 5000 UNITS/ML 1 ML VIAL/SYRINGE SQ SCH (20:49)
[2024-12-17] MEDS ORDERED: CEFD300CAP PO (05:33)
[2024-12-17] MEDS ORDERED: PRED10TA2 PO (05:33)
[2024-12-17] MEDS ORDERED: DOXY100T PO (05:33)
[2024-12-17] MEDS ORDERED: MUCI600T31 PO (05:33)
[2024-12-17] MEDS ORDERED: PRIL20TA2 PO (05:33)
[2024-12-17] MEDS ORDERED: VENTAER INH (05:33)
[2024-12-17] MEDS ORDERED: TALK1KIT MC (05:34)
[2024-12-17] MEDS ORDERED: METO1TAB7 PO (05:34)
[2024-12-17 05:46] VITALS: BP 135/70
[2024-12-17] MEDS: CEFDINIR 300 MG CAP PO SCH (05:46)
[2024-12-17 06:35] VITALS: BP 195/97; TEMP 97.9; O2SAT 94
[2024-12-17 06:43] VITALS: BP 198/100
[2024-12-17 06:56] LABS: BASO # 0.0 10^3/uL (0.0-0.2); BASO % 0.1 % (0.0-1.0); EOS # 0.0 10^3/uL (0.0-0.5); EOS % 0.0 % (0.0-3.0); LYMPH # 0.5 10^3/uL (1.5-5.0); LYMPH % 4.9 % (24.0-44.0); MONO # 0.2 10^3/uL (0.0-0.8); MONO % 1.6 % (2.0-8.0); NEUTROPHILS # 9.9 10^3/uL (1.5-8.5); NEUTROPHILS % 93.0 % (36.0-66.0); PLATELET COUNT, AUTOMATED 185 10^3/uL (150-450)
[2024-12-17 07:55] LABS: HEPATITIS C VIRUS ABY INDEX 0.05 INDEX (<0.8)
[2024-12-17 08:07] LABS: ALT/SGPT 36 U/L (7.0-40); AST/SGOT 28 U/L (<34); CALCIUM LEVEL 9.3 MG/DL (8.5-10.1); CARBON DIOXIDE LEVEL 26 MMOL/L (20-31); CHLORIDE LEVEL 102 MMOL/L (98-107); CHOLESTEROL LEVEL 196 MG/DL (<200); CHOLESTEROL RISK RATIO 4.04 (<5); CREATININE FOR GFR 0.80 MG/DL (0.70-1.30); GLOMERULAR FILTRATION RATE > 90.0 (>56); LDL CHOLESTEROL 132.6 MG/DL (<100); NON-HDL-C 147.6 MG/DL; POTASSIUM SERUM 4.3 MMOL/L (3.5-5.1); SODIUM LEVEL 139 MMOL/L (136-145); TRIGLYCERIDES LEVEL 75 MG/DL (<150)
[2024-12-17] MEDS ORDERED: AMLO-751 PO (08:33)
[2024-12-17] MEDS: METOPROLOL TART 25 MG TABLET PO ONE (08:45)
[2024-12-17] MEDS: amLODIPine 10 MG TAB PO SCH (09:45)
[2024-12-17 10:27] VITALS: BP 142/67
[2024-12-17 14:00] VITALS: BP 131/67; TEMP 97.8; O2SAT 95
[2024-12-18] MEDS ORDERED: predniSONE 10 MG TAB PO SCH (09:00)
== END 2024-12-17 14:50 | disposition home or self-care (01) ==
LOC: M ED 04:40 → M ED INP 04:41 → M MS5PR 16:59
PROVIDERS: ADMIT General Practice; ATTEND General Practice
DX: B34.1 Enterovirus infection, unspecified (principal); B34.8 Other viral infections of unspecified site; R91.8 Other nonspecific abnormal finding of lung field; I16.1 Hypertensive emergency; E66.813 Obesity, class 3; R74.01 Elevation of levels of liver transaminase levels; R74.8 Abnormal levels of other serum enzymes; Z20.828 Contact with and (suspected) exposure to other viral communicable diseases; R00.0 Tachycardia, unspecified; U09.9 Post COVID-19 condition, unspecified; Z68.41 Body mass index [BMI] 40.0-44.9, adult; R09.02 Hypoxemia; Z86.79 Personal history of other diseases of the circulatory system; Z82.49 Family history of ischemic heart disease and other diseases of the circulatory system
CPT/HCPCS: 36415; 71046; 71275; 80047; 80048; 80061; 80074; 80076; 82550; 82553; 82803; 83036; 83605; 83874; 83880; 84145; 84436; 84443; 84484; 85025; 85610; 85652; 86036; 86038; 86140; 86200; 86431; 87486; 87581; 87633; 87798; 93005; 93041; 93306; 94640; 94760; 96372; 96374; 96375; 96376; 99285; J0696; J1100; J2919; Q9967